=== PATIENT | male | born 1955 | race African-American/Black ===

== ENCOUNTER 2016-11-21 11:01 | Emergency (ER) | payer OTHER ==
[~2016-11-21] VITALS: Ht 182.9 cm; Wt 102.1 kg
[~2016-11-21 11:01] MED LIST: ACETAMINOPHEN-1 EAC1 ORAL; ASPIRIN81 M1 PO; BACTRIM DS TAB1 EAC1 ORAL; BACTRIM-DS1 EA ORAL; CEPHALEXIN500 MG ORAL; CIPRO500 MG PO; FLOMAX0.4 MG PO; GLIPIZIDE10 MG PO; IBUPROFEN600 MG PO; KEFLEX500 MG ORAL; NAPROXEN500 MG PO; PROTONIX40 MG PO; ULTRAM50 MG ORAL; VIBRAMYCIN100 MG ORAL; VICODIN 5-5001 EACH PO; ZESTRIL20 MG PO
[2016-11-21] MEDS ORDERED: Famotidine 20 MG/ 2ML VIAL IVP ONE (11:45)
[2016-11-21] MEDS ORDERED: Morphine Sulfate 4mg/ml Inj IVP ONE (11:45)
--- NOTE | 2016-11-21 11:45 | Emergency Room Report ---
History of Present Illness General Chief Complaint: Abdominal Pain Source: Patient Present Illness HPI The patient presents with epigastric and back pain. He was seen by his doctor and they have scheduled endoscopy tomorrow. She told him that if the pain became severe to go to the emergency department. He previously had an evaluation for ulcers but has not had a recent evaluation. He denies any cardiac problems aside from hypertension. Many years ago and also he had melena but his stools have been normal. He had polyuria last night, no hematuria. No fevers. Last night the pain became severe and he had to take 2 Percocets. It was 9/10 and constant last night - severe. Today it's now 6/10. Post surgery to pull esophagus up into chest with L thoracotomy. Renal issues in the past. Allergies: Coded Allergies: No Known Allergies (Unverified , 12/19/11) Patient History Past Medical History: see triage record Past Surgical History: other - fundopplication? Social History: Denies: smoking, alcohol use, drug use Social History Narrative home, Reviewed Nursing Documentation: PMH: Agreed, PSxH: Agreed Nursing Documentation-PMH Hx Cardiac Problems: Yes Hx Hypertension: Yes Hx Diabetes: Yes Hx Cancer: No Hx Neurological Problems: No Review of Systems All Other Systems: negative except mentioned in HPI Physical Exam Vital Signs Date Time Temp Pulse Resp B/P (MAP) Pulse Ox O2 Delivery O2 Flow Rate FiO2 11/21/16 11:22 97.9 76 16 130/80 99 Room Air Sp02 EP Interpretation: reviewed, normal General Appearance: well appearing, no apparent distress, GCS 15 Head: normocephalic Eyes: bilateral eye normal inspection, bilateral eye PERRL ENT: moist mucus membranes Neck: supple Respiratory: lungs clear, normal breath sounds, other - thoracotomy scar L Cardiovascular #1: regular rate, rhythm Cardiovascular #2: 2+ radial (R) Gastrointestinal: normal inspection, normal bowel sounds, non tender, no mass, non-distended Musculoskeletal: back normal, gait/station normal, normal range of motion Neurologic: alert, oriented x3, grossly normal Psychiatric: mood/affect normal Skin: normal inspection, warm/dry Medical Decision Making Diagnostic Impression: Primary Impression: Abdominal pain Qualified Codes: R10.12 - Left upper quadrant pain Additional Impression: Chest and back pain ER Course Patient presents with severe L chest and back pain which seems to originate from stomach. DDx: AMI, ACS, gastritis, pancreatitis, GERD, spasm, aneurism, PE amongst others. VS against PE. Due to severity of pain, emergent evaluation with EKG, CT abdomen. Treatment with IV hydration and morphine, zofran and pepcid. Labs with normal WBC, H/H and slight increased creat. CT as below. CXR with L changes which could be post op. Area of pain not consistent with mesenteric hernia. Improved with treatment. Patient states recent (3 mo ago) cardiac eval which was normal. Based on this his risk of cardiac event is low. Based on severity of pain - I wanted to admit patient. He insisted on leaving. Patient will follow up with PMD tomorrow for endoscopy. Laboratory Tests Test 11/21/16 11:20 11/21/16 11:55 Urine Color Pale yellow Urine Appearance Slightly cloudy Urine pH 5 (4.5-8.0) Urine Specific Marshall 1.020 (1.005-1.035) Urine Protein 1+ (NEGATIVE) H Urine Glucose (UA) Negative (NEGATIVE) Urine Ketones Negative (NEGATIVE) Urine Occult Blood Negative (NEGATIVE) Urine Nitrite Negative (NEGATIVE) Urine Bilirubin Negative (NEGATIVE) Urine Urobilinogen Normal MG/DL (0.0-1.0) Urine Leukocyte Esterase 1+ (NEGATIVE) H Urine RBC 2-4 /HPF (0 - 0) H Urine WBC 2-4 /HPF (0 - 0) Urine Squamous Epithelial Cells Few /LPF (NONE/OCC) Urine Bacteria Few /HPF (NONE) White Blood Count 8.3 K/UL (4.8-10.8) Red Blood Count 4.14 M/UL (4.70-6.10) L Hemoglobin 12.3 G/DL (14.2-18.0) L Hematocrit 37.5 % (42.0-52.0) L Mean Corpuscular Volume 90 FL (80-99) Mean Corpuscular Hemoglobin 29.8 PG (27.0-31.0) Mean Corpuscular Hemoglobin Concent 32.9 G/DL (32.0-36.0) Red Cell Distribution Width 13.5 % (11.6-14.8) Platelet Count 156 K/UL (150-450) Mean Platelet Volume 10.4 FL (6.5-10.1) H Neutrophils (%) (Auto) 58.3 % (45.0-75.0) Lymphocytes (%) (Auto) 27.1 % (20.0-45.0) Monocytes (%) (Auto) 7.5 % (1.0-10.0) Eosinophils (%) (Auto) 5.8 % (0.0-3.0) H Basophils (%) (Auto) 1.4 % (0.0-2.0) Prothrombin Time 10.5 SEC (9.30-11.50) Prothrombin Time INR 1.0 (0.9-1.1) PTT 26 SEC (23-33) Sodium Level 139 mEQ/L (135-145) Potassium Level 4.5 mEQ/L (3.4-4.9) Chloride Level 101 mEQ/L (98-107) Carbon Dioxide Level 28 mEQ/L (20-30) Anion Gap 10 (5-15) Blood Urea Nitrogen 12 mg/dL (7-23) Creatinine 1.4 mg/dL (0.7-1.2) H Estimate Glomerular Filtration Rate > 60 mL/min (>60) Glucose Level 179 mg/dL (74-106) H Calcium Level 8.9 mg/dL (8.6-10.2) Total Bilirubin 0.2 mg/dL (0.0-1.2) Aspartate Amino Transferase (AST) 24 U/L (5-40) Alanine Aminotransferase (ALT) 34 U/L (3-41) Alkaline Phosphatase 137 U/L (40-129) H Total Creatine Kinase 342 U/L (38-174) H Troponin I < 0.30 ng/mL (<=0.30) Total Protein 6.3 g/dL (6.6-8.7) L Albumin 3.8 g/dL (3.5-5.2) Globulin 2.5 g/dL Albumin/Globulin Ratio 1.5 (1.0-2.7) Lipase 28 U/L (< 60) EKG Diagnostic Results Rate: normal Rhythm: NSR ST Segments: no acute changes Rhythm Strip Diag. Results EP Interpretation: yes Rhythm: NSR, no PVC's, no ectopy Chest X-Ray Diagnostic Results Chest X-Ray Diagnostic Results : Chest X-Ray Ordered: Yes # of Views/Limited/Complete: 1 View Indication: Chest Pain EP Interpretation: Yes Interpretation: no consolidation, no pneumothorax, other - L effusion vs thickening Impression: Other Electronically Signed by: Juan Diego Waters MD CT/MRI/US Diagnostic Results CT/MRI/US Diagnostic Results : Imaging Test Ordered: abd/pelvis Impression Impression: Atrophic right kidney. Possible internal hernia involving the dorsal mesenteric root and) midline portion of the mid abdomen. No evidence of bowel obstruction or inflammatory changes associated with this finding. Atherosclerotic vascular disease Mild left hydronephrosis, perhaps associated with mildly distended urinary bladder. Multiple left renal cysts. Mild left basal atelectasis. Moderate size hiatal hernia. L5-S1 degenerative disc disease Last Vital Signs Date Time Temp Pulse Resp B/P (MAP) Pulse Ox O2 Delivery O2 Flow Rate FiO2 11/21/16 15:44 98.0 82 16 120/80 98 Room Air Status: improved Disposition: HOME, SELF-CARE Condition: Improved Juan Diego Waters M.D. Nov 21, 2016 11:45
[2016-11-21 11:53] LABS: APPEARANCE,URINE SLIGHTLY CLOUDY; KETONES,URINE NEGATIVE (NEGATIVE); LEUKOCYTE ESTERASE ,URINE 1+ (NEGATIVE); NITRITE,URINE NEGATIVE (NEGATIVE); PH,URINE 5 (4.5-8.0); PROTEIN,URINE 1+ (NEGATIVE); UROBILINOGEN,URINE NORMAL MG/DL (0.0-1.0)
[2016-11-21 12:09] LABS: BACTERIA,URINE FEW /HPF; SQUAMOUS EPITHELIAL CELL,UR FEW /LPF (NONE/OCC)
[2016-11-21 12:11] LABS: BASOPHILS % (AUTO) 1.4 % (0.0-2.0); EOSINOPHILS % (AUTO) 5.8 % (0.0-3.0); LYMPHOCYTES % (AUTO) 27.1 % (20.0-45.0); MEAN CORPUSCULAR HEMOGLOBIN 29.8 PG (27.0-31.0); MEAN CORPUSCULAR HGB CONC 32.9 G/DL (32.0-36.0); MEAN CORPUSCULAR VOLUME 90 FL (80-99); MEAN PLATELET VOLUME 10.4 FL (6.5-10.1); MONOCYTES % (AUTO) 7.5 % (1.0-10.0); NEUTROPHILS % (AUTO) 58.3 % (45.0-75.0); PLATELET COUNT 156 K/UL (150-450); RED BLOOD COUNT 4.14 M/UL (4.70-6.10); RED CELL DISTRIBUTION WIDTH 13.5 % (11.6-14.8); WHITE BLOOD COUNT 8.3 K/UL (4.8-10.8)
[2016-11-21 12:20] LABS: PROTHROMBIN TIME 10.5 SEC (9.30-11.50)
[2016-11-21 12:26] LABS: TROPONIN I < 0.30 ng/mL (<=0.30)
[2016-11-21 12:30] LABS: ALANINE AMINOTRANSFERASE 34 U/L (3-41); ALBUMIN/GLOBULIN RATIO 1.5 (1.0-2.7); ANION GAP 10 (5-15); ASPARTATE AMINO TRANSFERASE 24 U/L (5-40); CALCIUM 8.9 mg/dL (8.6-10.2); CARBON DIOXIDE 28 mEQ/L (20-30); CHLORIDE 101 mEQ/L (98-107); CREATININE 1.4 mg/dL (0.7-1.2); GLOMERULAR FILTRATION RATE > 60 mL/min (>60); HEMOLYSIS 4; LIPASE 28 U/L (< 60); POTASSIUM 4.5 mEQ/L (3.4-4.9); SODIUM 139 mEQ/L (135-145); TOTAL PROTEIN 6.3 g/dL (6.6-8.7)
--- NOTE | 2016-11-21 12:30 | Diagnostic Imaging Report ---
Indication: Dyspnea Comparison: None A single view chest radiograph was obtained. Findings: There is blunting of the left costophrenic angle which may be due to a small effusion or pleural thickening. The heart is mildly enlarged. No infiltrate seen. Bones are unremarkable. Impression: Left pleural effusion versus pleural thickening
--- NOTE | 2016-11-21 14:14 | Diagnostic Imaging Report ---
Indication: Abdominal pain Technique: Continuous helical transaxial imaging of the abdomen and pelvis was obtained from the lung bases to the pubic symphysis during intravenous contrast administration. Coronal 2-D reformats were also obtained. Study obtained in a Siemens sensation [address] Total Dose length Product (DLP): [address] Dose Index Volume (CTDIvol): 18.4, though 0.15 mGy Comparison: None Findings: There is left basilar atelectasis. There is a moderate size hiatal hernia. There are cystic hypodensities within the left kidney. There is mild left hydronephrosis without evidence of obstructing stone. The urinary bladder is mildly distended. The right kidney is markedly atrophic. There is some dilatation of the right renal pelvis noted. Normal appendix demonstrated. There is a score-like pattern of the mesenteric vessels in the dorsal mesenteric root just below the pancreas. The possibility of an internal hernia is not excluded. There is no evidence of inflammation or bowel obstruction or other consequence of this finding. Few diverticula noted in the colon. Arterial vascular calcifications are present. No free fluid or free air identified. The liver and spleen and pancreas are unremarkable. Gallbladder is unremarkable. Narrowing of L5-S1 disc, endplate and facet spur formation demonstrated. Impression: Atrophic right kidney. Possible internal hernia involving the dorsal mesenteric root and) midline portion of the mid abdomen. No evidence of bowel obstruction or inflammatory changes associated with this finding. Atherosclerotic vascular disease Mild left hydronephrosis, perhaps associated with mildly distended urinary bladder. Multiple left renal cysts. Mild left basal atelectasis. Moderate size hiatal hernia. L5-S1 degenerative disc disease The CT scanner at [facility] is accredited by the [employer] and the scans are performed using dose optimization techniques as appropriate to a performed exam including Automatic Exposure control.
[2016-11-21 15:40] VITALS: BP 120/80
[2016-11-21 15:44] VITALS: BP 120/80
== END 2016-11-21 15:45 | disposition home or self-care (01) ==
LOC: EMR 12:10 → CANBEDREQ 15:17 → EMR 15:45
DX: R10.13 Epigastric pain (principal); M54.9 Dorsalgia, unspecified; R07.9 Chest pain, unspecified; E11.9 Type 2 diabetes mellitus without complications; I10 Essential (primary) hypertension; N26.1 Atrophy of kidney (terminal); N28.1 Cyst of kidney, acquired; K44.9 Diaphragmatic hernia without obstruction or gangrene; M51.37 Other intervertebral disc degeneration, lumbosacral region; N13.30 Unspecified hydronephrosis
CPT/HCPCS: 36415; 71010; 74177; 80053; 81003; 82550; 83690; 84484; 85025; 85610; 85730; 93005; 96361; 96374; 96375; 99284; J2270; J2405; Q9967; S0028

== ENCOUNTER 2017-02-24 19:30 | Emergency (ER) | payer OTHER ==
[~2017-02-24] VITALS: Ht 180.3 cm; Wt 106.6 kg
[2017-02-24 20:08] VITALS: BP 152/74
[2017-02-24] MEDS ORDERED: HUMALOG 75/255 UNITS SUBQ (20:41)
[2017-02-24] MEDS ORDERED: METFORMIN HCL500 M1 ORAL (20:41)
[2017-02-24] MEDS ORDERED: GLUCOTROL10 MG ORAL (20:41)
[2017-02-24 21:21] VITALS: BP 152/74
--- NOTE | 2017-02-24 22:21 | Emergency Room Report ---
History of Present Illness General Chief Complaint: Medication Refill Source: Patient Present Illness [facility] The patient is a 61-year-old male with a history of diabetes presenting for medication refill. He states that he ran out of his insulin as well as 2 other oral medications yesterday and has not been able to followup with primary doctor as he is out of town. He denies any symptoms including dizziness, SOB, CP, abd pain, fatigue Allergies: Coded Allergies: No Known Allergies (Unverified , 12/19/11) Patient History Past Medical History: see triage record Pertinent Family History: none Reviewed Nursing Documentation: PMH: Agreed, PSxH: Agreed Nursing Documentation-PMH Hx Cardiac Problems: Yes Hx Hypertension: Yes Hx Diabetes: Yes Hx Cancer: No Hx Neurological Problems: No Review of Systems All Other Systems: negative except mentioned in HPI Physical Exam Vital Signs Date Time Temp Pulse Resp B/P (MAP) Pulse Ox O2 Delivery O2 Flow Rate FiO2 02/24/17 19:35 97.5 87 16 145/70 95 Room Air Sp02 EP Interpretation: reviewed, normal General Appearance: no apparent distress, alert, GCS 15, non-toxic Head: normocephalic, atraumatic Eyes: bilateral eye normal inspection, bilateral eye PERRL ENT: hearing grossly normal, normal pharynx, no angioedema, normal voice Respiratory: chest non-tender, lungs clear, normal breath sounds, speaking full sentences Cardiovascular #1: regular rate, rhythm, no edema Musculoskeletal: back normal, gait/station normal, normal range of motion, non- tender Neurologic: alert, oriented x3, responsive, motor strength/tone normal, sensory intact, speech normal Psychiatric: judgement/insight normal, memory normal, mood/affect normal, no suicidal/homicidal ideation Skin: normal color, no rash, warm/dry, well hydrated Medical Decision Making PA Attestation Dr. Woodward is my supervising physician. Patient management was discussed with my supervising physician Diagnostic Impression: Primary Impression: Diabetes mellitus Qualified Codes: E11.8 - Type 2 diabetes mellitus with unspecified complications Additional Impression: Encounter for medication refill ER Course The patient is a 61-year-old male with a history of diabetes presenting for medication refill DDx considered but not limited to: hyperglycemia, hypoglycemia, DKA, among others Initial Accu-Chek shows significant hyperglycemia. The patient is given 8 units of insulin and will be discharged home with his normal diabetic medications. He is not exhibiting any signs of hyperglycemia. BS has decreased after insulin. He will follow up with his her doctor soon as possible. ER precautions are given Last Vital Signs Date Time Temp Pulse Resp B/P (MAP) Pulse Ox O2 Delivery O2 Flow Rate FiO2 02/24/17 21:21 97.5 69 16 152/74 95 Room Air Status: improved Disposition: HOME, SELF-CARE Condition: Improved Scripts Metformin Hcl* (METFORMIN HCL*) 500 Mg Tablet 500 MG ORAL TWICE A DAY, #30 TAB Prov: GLEN SMITH.ABroderick 02/24/17 Glipizide* (GLUCOTROL*) 10 Mg Tablet 10 MG ORAL BID, #30 TAB 0 Refills Prov: GLEN SMITH 02/24/17 Insulin Human Isophan/Regular (Humulin 70-30 Vial) 100 Unit/1 Ml Vial 52 UNITS SUBQ BIDAC, #5 VIAL 0 Refills Prov: GLEN SMITH.ABroderick 02/24/17 Referrals: [facility] (PCP) Patient Instructions: Insulin Treatment for Diabetes, Medicine Refill at the Emergency Department, Blood Glucose Monitoring, Adult Additional Instructions: I discussed my findings with the patient. All questions and concerns have been answered. Treatment and medication compliance have been addressed. Return to ED if symptoms worsen, new symptoms arise, or if needed for any reason. Patient verbalized understanding of discharge instructions. Return to emergency Department if you notice dizziness, chest pain, shortness of breath, abdominal pain, back pain GLEN SMITH Feb 24, 2017 22:21
== END 2017-02-24 21:19 | disposition home or self-care (01) ==
LOC: EMR 20:11
DX: E11.8 Type 2 diabetes mellitus with unspecified complications (principal); Z76.0 Encounter for issue of repeat prescription; I10 Essential (primary) hypertension; Z79.4 Long term (current) use of insulin
CPT/HCPCS: 82962; 96372; 99284; J1815

== ENCOUNTER 2017-05-11 20:28 | Emergency (ER) | payer OTHER ==
[~2017-05-11] VITALS: Ht 188 cm; Wt 102.1 kg
[~2017-05-11 20:28] MED LIST changes: +GLUCOTROL10 MG ORAL; +HUMALOG 75/255 UNITS SUBQ; +METFORMIN HCL500 M1 ORAL
[2017-05-11 21:00] VITALS: BP 148/80
[2017-05-11] MEDS ORDERED: Morphine Sulfate 4mg/ml Inj IVP ONE (21:00)
[2017-05-11] MEDS ORDERED: Norco 5mg/325mg tab ORAL ONE (21:30)
[2017-05-11] MEDS ORDERED: IBUPROFEN600 MG ORAL (22:49)
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
[2017-05-11 22:59] VITALS: BP 142/81
[2017-05-11 23:00] VITALS: BP 142/81
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
== END 2017-05-11 22:50 | disposition home or self-care (01) ==
LOC: EMR 22:50
DX: R10.9 Unspecified abdominal pain (principal); V43.62XA Car passenger injured in collision with other type car in traffic accident, initial encounter; Y92.410 Unspecified street and highway as the place of occurrence of the external cause; I10 Essential (primary) hypertension; E11.9 Type 2 diabetes mellitus without complications
CPT/HCPCS: 74176; 99284

== ENCOUNTER 2017-05-31 04:06 | Emergency (ER) | payer OTHER ==
[~2017-05-31] VITALS: Ht 180.3 cm; Wt 106.6 kg
[~2017-05-31 04:06] MED LIST changes: +IBUPROFEN600 MG ORAL
[2017-05-31 04:37] VITALS: BP 158/78
--- NOTE | 2017-05-31 04:39 | Emergency Room Report ---
History of Present Illness General Chief Complaint: Abdominal Pain Source: Patient Present Illness HPI 61-year-old male, history of esophageal strictures with repair 2 years ago, diabetes, presenting with abdominal pain for the last 7 days. Points to his left abdomen. States that it is intermittent. Has had significant nausea and vomiting for the last couple days, at least 53 day. Nonbilious nonbloody. Normal bowel movements. No black or bloody stools. He is passing gas. States that he has had this pain in the past. His last CAT scan was in October which did not reveal any acute surgical pathology No fever chills chest pain or shortness of breath Allergies: Coded Allergies: No Known Allergies (Unverified , 12/19/11) Patient History Past Medical History: see triage record Past Surgical History: none Pertinent Family History: none Reviewed Nursing Documentation: PMH: Agreed; PSxH: Agreed Nursing Documentation-PMH Hx Cardiac Problems: Yes Hx Hypertension: Yes Hx Diabetes: Yes Hx Cancer: No Hx Neurological Problems: No Review of Systems All Other Systems: negative except mentioned in HPI Physical Exam Vital Signs Date Time Temp Pulse Resp B/P (MAP) Pulse Ox O2 Delivery O2 Flow Rate FiO2 05/31/17 04:15 97.8 82 18 158/78 94 Room Air 97.9 Sp02 EP Interpretation: reviewed, normal General Appearance: normal inspection, well appearing, no apparent distress, alert, GCS 15, non-toxic Head: normocephalic, atraumatic Eyes: bilateral eye normal inspection, bilateral eye PERRL, bilateral eye EOMI ENT: normal ENT inspection, normal pharynx, normal voice, moist mucus membranes Neck: normal inspection, full range of motion, supple Respiratory: normal inspection, lungs clear, normal breath sounds, no respiratory distress, no retraction, no wheezing, speaking full sentences, chest symmetrical Cardiovascular #1: normal inspection, regular rate, rhythm, no edema, normal capillary refill Cardiovascular #2: 2+ radial (R), 2+ radial (L) Gastrointestinal: other - firm abdomen, LLQ tenderness, no guarding or rigidity , no masses palpated Genitourinary: no CVA tenderness Musculoskeletal: normal inspection, back normal, normal range of motion, non- tender Neurologic: normal inspection, alert, oriented x3, responsive, motor strength/ tone normal, sensory intact, normal gait, speech normal Psychiatric: normal inspection, judgement/insight normal, memory normal Skin: normal inspection, normal color, no rash, warm/dry, well hydrated, normal turgor Medical Decision Making Diagnostic Impression: Primary Impression: Abdominal pain Additional Impression: Renal insufficiency ER Course 61-year-old male with abdominal pain Differential Diagnosis: Gastritis, gastroenteritis, cholecystitis, appendicitis, diverticulitis, SBO, cardiac, UTI/pyelo Plan: Basic labs, ua, ekg pain control, IVF CT abdopelvis ER course: Patient has remained stable during ED stay. Signed out to Dr Hoyt 61 yo M with LLQ pain pending CT scan results for final dispo Please note that this Emergency Department Report was dictated using [employer] testing technology software, occasionally this can lead to erroneous entry secondary to interpretation by the dictation equipment EKG Diagnostic Results EP Interpretation: Yes Rate: normal Rhythm: NSR ST Segments: No acute changes ASA given to patient: No Rhythm Strip EP Interpretation: Yes Rate: 75 Rhythm: NSR, no PVCs, no ectopy Last Vital Signs Date Time Temp Pulse Resp B/P (MAP) Pulse Ox O2 Delivery O2 Flow Rate FiO2 18 04:15 97.8 82 18 158/78 94 Room Air 97.9 Referrals: [facility] (PCP) Aaron Thrasher M.D. May 31, 2017 04:39
[2017-05-31 04:44] LABS: BASOPHILS % (AUTO) 1.3 % (0.0-2.0); EOSINOPHILS % (AUTO) 5.7 % (0.0-3.0); HEMATOCRIT 35.9 % (42.0-52.0); HEMOGLOBIN 12.3 G/DL (14.2-18.0); LYMPHOCYTES % (AUTO) 27.1 % (20.0-45.0); MEAN CORPUSCULAR VOLUME 85 FL (80-99); PLATELET COUNT 133 K/UL (150-450); RED BLOOD COUNT 4.23 M/UL (4.70-6.10); WHITE BLOOD COUNT 7.4 K/UL (4.8-10.8)
[2017-05-31 04:45] LABS: APPEARANCE,URINE CLEAR; BILIRUBIN, URINE NEGATIVE (NEGATIVE); COLOR,URINE PALE YELLOW; GLUCOSE, URINE (UA) 4+ (NEGATIVE); KETONES,URINE NEGATIVE (NEGATIVE); LEUKOCYTE ESTERASE ,URINE NEGATIVE (NEGATIVE); NITRITE,URINE NEGATIVE (NEGATIVE); PH,URINE 6.5 (4.5-8.0); PROTEIN,URINE NEGATIVE (NEGATIVE); UROBILINOGEN,URINE NORMAL MG/DL (0.0-1.0)
[2017-05-31] MEDS ORDERED: Morphine Sulfate 4mg/ml Inj IVP ONE (04:45)
[2017-05-31 04:55] LABS: ANION GAP 5 mmol/L (5-15); BLOOD UREA NITROGEN 11 mg/dL (7-18); CARBON DIOXIDE 29 MMOL/L (21-32); CHLORIDE 101 MMOL/L (98-107); CREATININE 1.6 MG/DL (0.55-1.30); SODIUM 135 MMOL/L (136-145)
[2017-05-31 04:59] LABS: ALANINE AMINOTRANSFERASE 33 U/L (12-78); ALKALINE PHOSPHATASE 137 U/L (46-116); ASPARTATE AMINO TRANSFERASE 19 U/L (15-37); BILIRUBIN,TOTAL 0.1 MG/DL (0.2-1.0)
[2017-05-31] MEDS ORDERED: HUMULIN R100 UNIT/1 SUBQ (05:08)
[2017-05-31] MEDS ORDERED: GABAPENTIN100 MG ORAL (05:08)
[2017-05-31 06:29] VITALS: BP 145/76
[2017-05-31] MEDS ORDERED: DICYCLOMINE HCL10 MG PO (07:26)
[2017-05-31] MEDS ORDERED: COLACE100 MG ORAL (07:26)
[2017-05-31 07:30] VITALS: BP 153/73
[2017-05-31 07:35] VITALS: BP 153/73
--- NOTE | 2017-05-31 10:03 | Diagnostic Imaging Report ---
Indication: Abdominal pain Technique: CT of the abdomen and pelvis utilizing automated exposure control without intravenous or oral contrast. CT dose: Total DLP 879.11 mGycm; CTDI vol 15.47 mGy Comparison: 05/11/2017 Findings: Please note that evaluation of the abdominal and pelvic viscera is limited without the use of intravenous and oral contrast. Within these limitations the following observations are made: Unchanged postsurgical appearance of the left chest wall with left pleural thickening with adjacent linear opacities/scarring in the left base. Mild dependent atelectasis seen in the right lower lobe. Heart size is within normal limits. No pericardial effusion. Noncontrast evaluation of the liver, gallbladder, spleen and adrenal glands and pancreas is grossly unremarkable. Is unchanged marked atrophy of the right kidney with a fluid attenuation structure possibly representing a residual renal pelvis. The left kidney is normal in appearance. There are multiple low-attenuation likely cysts in the left kidney. There is no urinary tract stone or hydronephrosis. There is no evidence of free intraperitoneal air or ascites. No evidence of hemoperitoneum. There is a moderate-sized hiatal hernia with unchanged thickening of the distal esophagus. There is some swirling of the mesentery just below the pancreas. This is unchanged from the prior exam. The possibility of internal hernia is not entirely excluded. There is no evidence of bowel obstruction or inflammation or additional consequence of this finding. A few scattered diverticula are seen in the colon. Abdominal aorta is normal in size with atherosclerotic calcifications. No bulky retroperitoneal adenopathy is seen. There is degenerative change of the spine. No acute osseous abnormality noted. IMPRESSION: Limited exam without intravenous or oral contrast. Within these limitations: No definite evidence of acute intra-abdominal pathology. * No evidence of free intraperitoneal fluid or air. * Unchanged hiatal hernia with thickening of the distal esophagus possibly related to chronic obstruction, reflux, esophageal dysmotility and/or esophagitis. Correlation with endoscopy again recommended. Additional stable findings unchanged from prior exam as above. This corresponds with the statrad preliminary report. The CT scanner at [facility] is accredited by the [employer] and the scans are performed using protocols designed to limit radiation exposure to as low as reasonably achievable to attain images of sufficient resolution adequate for diagnostic evaluation.
--- NOTE | 2017-05-31 12:42 | Cardiology Report ---
APPROVED REPORT EKG Measurement Heart [id number] Normal sinus rhythm Normal ECG
== END 2017-05-31 07:46 | disposition home or self-care (01) ==
LOC: EMR 04:26
DX: R10.9 Unspecified abdominal pain (principal); N28.9 Disorder of kidney and ureter, unspecified; I10 Essential (primary) hypertension; E11.9 Type 2 diabetes mellitus without complications
CPT/HCPCS: 36415; 74176; 80053; 81003; 83690; 84484; 85025; 93005; 96374; 96375; 99284; J2270; J2405; S0028

== ENCOUNTER 2017-11-27 13:19 | Emergency (ER) | payer OTHER ==
[~2017-11-27] VITALS: Ht 180.3 cm; Wt 106.6 kg
[~2017-11-27 13:19] MED LIST changes: +COLACE100 MG ORAL; +DICYCLOMINE HCL10 MG PO; +GABAPENTIN100 MG ORAL; +HUMULIN R100 UNIT/1 SUBQ
[2017-11-27 13:41] VITALS: BP 115/72
[2017-11-27] MEDS ORDERED: Tetanus/Diptheria/Pertussis Vaccine 0.5ml Syr IM ONE (14:00)
[2017-11-27] MEDS ORDERED: Norco 5mg/325mg tab ORAL ONE (14:15)
[2017-11-27] MEDS ORDERED: Ketorolac 30mg Inj IM ONE (15:45)
--- NOTE | 2017-11-27 15:51 | Emergency Room Report ---
History of Present Illness General Chief Complaint: Laceration Source: Patient Present Illness HPI 62-year-old male patient presents to ER complaining of left middle finger injury. Reports that he was using a kickboxing instructor to open boxes when he sliced off part of his finger. States does not have the tip of his finger present. Reports he is right-hand dominant. reports history of diabetes. reports taking blood thinners medication, does not know the name. denies fever, chest pain, shortness of breath. Denies calf pain. Allergies: Coded Allergies: No Known Allergies (Unverified , 12/19/11) Patient History Past Medical History: see triage record Reviewed Nursing Documentation: PMH: Agreed; PSxH: Agreed Nursing Documentation-PMH Hx Cardiac Problems: Yes Hx Hypertension: Yes Hx Diabetes: Yes Hx Cancer: No Hx Neurological Problems: No Review of Systems All Other Systems: negative except mentioned in HPI Physical Exam Vital Signs Date Time Temp Pulse Resp B/P (MAP) Pulse Ox O2 Delivery O2 Flow Rate FiO2 11/27/17 13:31 98.7 80 20 115/72 98 Room Air 98.8 Sp02 EP Interpretation: reviewed, normal General Appearance: well appearing, no apparent distress, alert, GCS 15, non- toxic Head: normocephalic, atraumatic Eyes: bilateral eye normal inspection, bilateral eye PERRL ENT: hearing grossly normal, normal pharynx, no angioedema, normal voice, uvula midline, moist mucus membranes Neck: full range of motion Respiratory: lungs clear, normal breath sounds, no rhonchi, no respiratory distress, no accessory muscle use, no wheezing, speaking full sentences Cardiovascular #1: regular rate, rhythm, no edema Cardiovascular #2: 2+ radial (R), 2+ radial (L) Musculoskeletal: back normal, gait/station normal, normal range of motion, other - left hand middle finger: Tip of finger and nail avulsed and missing, no nail avulsion or subungual hematoma, bone not exposed, bleeding, sensation intact to light touch,, tender - left hand middle finger nail Neurologic: alert, oriented x3, responsive, motor strength/tone normal, sensory intact Psychiatric: mood/affect normal Skin: no rash Medical Decision Making PA Attestation Dr. Alaniz is my supervising Physician whom patient management has been discussed with. Diagnostic Impression: Primary Impression: Avulsion, finger tip ER Course Pt presents to ED c/o cutting his hand with kickboxing instructor, injury to left hand middle finger. DDX considered but are not limited to laceration, abrasion, contusion, cellulitis. VITAL SIGNS are WNL, patient is afebrile ED INTERVENTIONS: due to extent of injury, will consult with Dr. Calvo. Dr. Calvo graciously agreed to come in and consult on aptient. Wound was cleaned and irrigated using copious normal saline. x-ray of right hand negative for acute disease, no damage to distal phalanx of left hand middle finger, per the preliminary reading. patient provided with [place] pain medication. Finger repaired by . See procedure Dr. Calvo procedure note. consult with Dr. Calvo, will provide patient with oral and topical antibiotic medication, willl provide patient with Tylenol No. 3 for pain symptoms. Wound cleaned and covered by Dr. Calvo, instructed patient to keep wound covered until follow up with Dr. Calvo. Patient reports understanding and agreement to treatment plan. Keep wound clean and dry. Followup with Dr. Calvo for wound check and suture removal in 5-7 days. call to schedule appointment. ER precautions given. DISCHARGE: Rx provided for Keflex Rx provided for Bacitracin Rx provided for Tylenol #3 CURES reviewed At this time pt is stable for d/c to home. Patient resting comfortably, in no acute distress, nontoxic appearing, talking without difficulty. Will provide with patient care instructions and any necessary prescriptions. Patient to take medication as instructed. Care plan and follow-up instructions provided. Work note provided to patient. Patient questions asked and answered. Patient instructed to follow-up with primary care provider for wound check and suture removal. ER precautions given. Patient instructed to return to ER immediately for any new or worsening of symptoms. - Please note that this Emergency Department Report was dictated using [employer] manager technology software, occasionally this can lead to erroneous entry secondary to interpretation by the dictation equipment. Other X-Ray Diagnostic Results Other X-Ray Diagnostic Results : X-Ray ordered: left hand # of Views/Limited Vs Complete: 3 View Indication: Pain EP Interpretation: Yes PA Xray: Interpretation reviewed, by supervising MD, and agrees with findings. Interpretation: no dislocation, no soft tissue swelling, no fractures Impression: No acute disease ZEYAD Scribe Text Derrick Yusuf PA-C Last Vital Signs Date Time Temp Pulse Resp B/P (MAP) Pulse Ox O2 Delivery O2 Flow Rate FiO2 11/27/17 15:23 98.8 11/27/17 13:41 20 115/72 98 Room Air 11/27/17 13:31 80 Disposition: HOME, SELF-CARE Condition: Stable Scripts Cephalexin* (KEFLEX*) 500 Mg Capsule 500 MG ORAL EVERY 12 HOURS for 7 Days, #14 CAP 0 Refills Prov: Eduard Yusuf 11/27/17 Bacitracin/Polymyxin B Sulfate (BACITRACIN-POLYMYXIN OINTMENT) 28.35 Gm Oint...g. 1 APPLIC TP BID, #28 GM Prov: Eduard Yusuf 11/27/17 Acetaminophen With Codeine (T#3) (TYLENOL #3 TAB*) Y Tab 1 TAB ORAL Q6HR PRN for For Pain, #10 TAB Prov: Eduard Yusuf 11/27/17 Referrals: [facility]ERR[facility] (PCP) Patient Instructions: Deep Skin Avulsion, Laceration Care, Adult, Sutured Wound Care, [id number] Additional Instructions: Patient instructed to follow-up with Dr. Calvo for wound check and suture removal in 6-7 days. Call to schedule appointment. Take medications as directed. Keep wound clean and dry. Patient questions asked and answered. ER precautions given, patient instructed to return to ER immediately for any new or worsening of symptoms. Eduard Yusuf Nov 27, 2017 15:51
[2017-11-27] MEDS ORDERED: Bacitracin Oint UD TOPIC ONE (16:00)
[2017-11-27] MEDS ORDERED: Lidocaine 1% 10mg/ml/Epi 0.005mg/ml 30ml vial INJ ONE (16:00)
--- NOTE | 2017-11-27 17:03 | Diagnostic Imaging Report ---
Indication: Pain, trauma Technique: 3 views left hand Comparison: none Findings: No acute fractures. No dislocations. Osseous erosions are seen about the first interphalangeal joint, the first carpometacarpal joint, second and third third proximal interphalangeal joints. There is mild degenerative narrowing of multiple distal interphalangeal joints and of the first metacarpophalangeal joint. Well-corticated ossific density posterior to the wrist on the lateral view may represent an old fracture. Impression: No acute bony trauma Degenerative and erosive changes, as described Possible old carpal trauma, likely of the triquetrum
[2017-11-27] MEDS ORDERED: CEPHALEXIN500 MG ORAL (17:28)
[2017-11-27] MEDS ORDERED: BACITRACIN-P28.35 GM TP (17:28)
[2017-11-27] MEDS ORDERED: ACETAMINOPHEN-1 EAC1 ORAL (17:28)
[2017-11-27 17:39] VITALS: BP 121/77
== END 2017-11-27 17:40 | disposition home or self-care (01) ==
LOC: EMR 14:17
DX: S61.203A Unspecified open wound of left middle finger without damage to nail, initial encounter (principal); W27.5XXA Contact with paper-cutter, initial encounter; Y92.9 Unspecified place or not applicable; I10 Essential (primary) hypertension; E11.9 Type 2 diabetes mellitus without complications
CPT/HCPCS: 73130; 90471; 90715; 96372; 99283; J1885

== ENCOUNTER 2017-11-29 17:11 | Emergency (ER) | payer OTHER ==
[~2017-11-29] VITALS: Ht 180.3 cm; Wt 106.6 kg
[~2017-11-29 17:11] MED LIST changes: +BACITRACIN-P28.35 GM TP
[2017-11-29 17:38] VITALS: BP 147/76
[2017-11-29] MEDS ORDERED: Albuterol ud Inhalation HHN ONE (17:45)
--- NOTE | 2017-11-29 18:09 | Emergency Room Report ---
History of Present Illness General Chief Complaint: Dyspnea/Respdistress Source: Patient Present Illness HPI 62-year-old male with a history of tobacco use, hypertension, diabetes, coronary disease status post coronary artery stent, comes ER for one day history of chest tightness and shortness of breath, denies fever, cough, syncope , leg swelling or leg pain, but does report nausea and vomiting once today. He reports normal bowel movements, denies abdominal pain, denies any other complaint. Allergies: Coded Allergies: No Known Allergies (Unverified , 12/19/11) Patient History Past Medical History: see triage record Reviewed Nursing Documentation: PMH: Agreed; PSxH: Agreed Nursing Documentation-PMH Hx Cardiac Problems: Yes Hx Hypertension: Yes Hx Diabetes: Yes Hx Cancer: No Hx Neurological Problems: No Review of Systems All Other Systems: negative except mentioned in HPI Physical Exam Vital Signs Date Time Temp Pulse Resp B/P (MAP) Pulse Ox O2 Delivery O2 Flow Rate FiO2 11/29/17 17:24 98.5 71 18 145/80 93 98.4 11/29/17 17:38 Room Air 11/29/17 17:52 21 Sp02 EP Interpretation: reviewed, normal General Appearance: no apparent distress, alert, non-toxic Head: normocephalic Eyes: bilateral eye normal inspection, bilateral eye PERRL, bilateral eye EOMI ENT: normal ENT inspection, hearing grossly normal, normal pharynx, no angioedema, normal voice, moist mucus membranes Neck: normal inspection, full range of motion, supple, supple/symm/no masses Respiratory: chest non-tender, lungs clear, normal breath sounds, chest symmetrical, palpation of chest normal Cardiovascular #1: normal peripheral pulses, regular rate, rhythm, no edema, no gallop, no JVD, no murmur, no rub Cardiovascular #2: 2+ radial (R), 2+ radial (L) Gastrointestinal: normal inspection, non tender, soft, no mass, no guarding, no rebound Rectal: deferred Genitourinary: normal inspection, no CVA tenderness Musculoskeletal: back normal, gait/station normal, normal range of motion, non- tender, no calf tenderness, Maico's Sign negative Neurologic: alert, responsive, mold mechanic III-XII nml as tested, motor strength/tone normal, sensory intact, speech normal Psychiatric: judgement/insight normal, memory normal, mood/affect normal Skin: normal color, no rash, warm/dry, normal turgor Lymphatic: no adenopathy Medical Decision Making Diagnostic Impression: Primary Impression: Chest pain ER Course 62-year-old male with history of coronary disease, diabetes, hypertension, stent , feels better after getting aspirin and nitroglycerin one tab. EKG unremarkable. I spoke to Dr. Harmon, he will accept in transfer. EKG Diagnostic Results EKG Time: 17:45 EP Interpretation: no st-t- changes, no TWI's Rate: normal Rhythm: NSR ST Segments: no acute changes ASA given to the pt in ED: Yes Rhythm Strip Diag. Results Rhythm Strip Time: 18:08 EP Interpretation: yes Rate: 71 Rhythm: NSR, no PVC's, no ectopy Chest X-Ray Diagnostic Results Chest X-Ray Diagnostic Results : Chest X-Ray Ordered: Yes # of Views/Limited/Complete: 1 View Indication: Chest Pain EP Interpretation: Yes Interpretation: no consolidation, no effusion, no pneumothorax, no acute cardiopulmonary disease Impression: No acute disease Electronically Signed by: Regina Cash MD Last Vital Signs Date Time Temp Pulse Resp B/P (MAP) Pulse Ox O2 Delivery O2 Flow Rate FiO2 11/29/17 18:05 70 21 Room Air 21 11/29/17 18:04 97 11/29/17 17:38 98.4 147/76 98.4 Disposition: ADMITTED INPATIENT REGINA CASH M.D Nov 29, 2017 18:09
[2017-11-29] MEDS ORDERED: Nitroglycerin Subl 0.4mg tab SL PRN (18:15)
[2017-11-29 18:41] LABS: BASOPHILS % (AUTO) 1.5 % (0.0-2.0); EOSINOPHILS % (AUTO) 3.9 % (0.0-3.0); HEMATOCRIT 37.2 % (42.0-52.0); HEMOGLOBIN 12.2 G/DL (14.2-18.0); LYMPHOCYTES % (AUTO) 26.5 % (20.0-45.0); MEAN CORPUSCULAR VOLUME 89 FL (80-99); MONOCYTES % (AUTO) 7.9 % (1.0-10.0); NEUTROPHILS % (AUTO) 60.2 % (45.0-75.0); PLATELET COUNT 153 K/UL (150-450); RED BLOOD COUNT 4.17 M/UL (4.70-6.10); RED CELL DISTRIBUTION WIDTH 13.3 % (11.6-14.8); WHITE BLOOD COUNT 6.7 K/UL (4.8-10.8)
[2017-11-29 18:51] LABS: ANION GAP 6 mmol/L (5-15); BLOOD UREA NITROGEN 16 mg/dL (7-18); CALCIUM 8.3 MG/DL (8.5-10.1); CARBON DIOXIDE 27 MMOL/L (21-32); CHLORIDE 108 MMOL/L (98-107); CREATININE 1.6 MG/DL (0.55-1.30); POTASSIUM 4.2 MMOL/L (3.5-5.1); SODIUM 141 MMOL/L (136-145)
[2017-11-29 19:04] LABS: ALANINE AMINOTRANSFERASE 34 U/L (12-78); ALBUMIN 3.2 G/DL (3.4-5.0); ALKALINE PHOSPHATASE 130 U/L (46-116); ASPARTATE AMINO TRANSFERASE 24 U/L (15-37); BILIRUBIN,TOTAL 0.4 MG/DL (0.2-1.0)
[2017-11-29] MEDS ORDERED: CARVEDILOL3.125 MG ORAL (19:43)
[2017-11-29] MEDS ORDERED: GABAPENTIN300 MG ORAL (19:43)
[2017-11-29] MEDS ORDERED: BRILINTA90 MG PO (19:43)
[2017-11-29] MEDS ORDERED: NOVOLIN 70100 UNIT/1 (19:43)
[2017-11-29] MEDS ORDERED: ATORVASTATIN CA80 MG ORAL (19:43)
[2017-11-29] MEDS ORDERED: TAMSULOSIN HCL0.4 MG ORAL (19:43)
[2017-11-29] MEDS ORDERED: LISINOPRIL5 MG ORAL (19:43)
[2017-11-29 21:35] VITALS: BP 145/71
--- NOTE | 2017-11-30 10:40 | Diagnostic Imaging Report ---
Indication: Chest pain Technique: One view of the chest Comparison: 11/21/2016 Findings: Left costophrenic angle blunting appears similar to prior exam, could indicate pleural fluid versus scarring. There is some scarring in the left perihilar region peripherally. The remainder of the lungs and pleural spaces are otherwise clear.. There is questionably an old Hill-Sachs deformity of the right humeral head Impression: Left costophrenic angle blunting, could indicate a small pleural effusion, but similar to prior study could suggests that this is due to chronic pleural thickening Left perihilar scarring No definite acute process otherwise
--- NOTE | 2017-12-03 14:53 | Cardiology Report ---
APPROVED REPORT EKG Measurement Heart [id number] Normal sinus rhythm Septal infarct, age undetermined Abnormal ECG
== END 2017-11-29 21:35 | disposition short-term general hospital (02) ==
LOC: EMR 17:58
DX: R07.89 Other chest pain (principal); I10 Essential (primary) hypertension; E11.9 Type 2 diabetes mellitus without complications; I25.10 Atherosclerotic heart disease of native coronary artery without angina pectoris; Z95.5 Presence of coronary angioplasty implant and graft
CPT/HCPCS: 36415; 71045; 80053; 83880; 84484; 85025; 93005; 94640; 94664; 99285

== ENCOUNTER 2017-12-12 09:35 | Emergency (ER) | payer OTHER ==
[~2017-12-12] VITALS: Ht 180.3 cm; Wt 106.6 kg
[~2017-12-12 09:35] MED LIST changes: +ATORVASTATIN CA80 MG ORAL; +BRILINTA90 MG PO; +CARVEDILOL3.125 MG ORAL; +GABAPENTIN300 MG ORAL; +LISINOPRIL5 MG ORAL; +NOVOLIN 70100 UNIT/1; +TAMSULOSIN HCL0.4 MG ORAL
[2017-12-12 09:51] VITALS: BP 130/67
[2017-12-12 10:10] VITALS: BP 130/67
--- NOTE | 2017-12-12 12:47 | Emergency Room Report ---
History of Present Illness General Chief Complaint: Wound Recheck/Suture Removal Source: Patient, Medical Record Present Illness HPI 62-year-old male presents ED for wound check. Had an avulsion injury of his left finger. Was seen here on 11/27. Was repaired by Dr. Dhaliwal and subsequent discharge. Patient was instructed to follow-up with Dr. Dhaliwal in his office. Patient came here for follow-up. Denies any complaints. Denies any pain. States wound is healing well. States that they took some skin from his stomach and attached it to his finger. Denies any fevers or chills. He denies any discharge. No other aggravating relieving factors. Denies any other associated symptoms Allergies: Coded Allergies: No Known Allergies (Unverified , 12/19/11) Patient History Past Medical History: DM, HTN Past Surgical History: none Pertinent Family History: none Social History: Denies: smoking, alcohol use, drug use Immunizations: UTD Reviewed Nursing Documentation: PMH: Agreed; PSxH: Agreed Nursing Documentation-PMH Past Medical History: No History, Except For Hx Cardiac Problems: Yes Hx Hypertension: Yes Hx Diabetes: Yes Hx Cancer: No Hx Neurological Problems: No Review of Systems All Other Systems: negative except mentioned in HPI Physical Exam Vital Signs Date Time Temp Pulse Resp B/P (MAP) Pulse Ox O2 Delivery O2 Flow Rate FiO2 12/12/17 09:41 98.3 67 18 130/67 98 Room Air 98.2 Sp02 EP Interpretation: reviewed, normal General Appearance: no apparent distress, alert, GCS 15, non-toxic Head: normocephalic Eyes: bilateral eye normal inspection, bilateral eye PERRL ENT: normal ENT inspection Neck: normal inspection Respiratory: normal inspection Cardiovascular #1: normal inspection Gastrointestinal: normal inspection Rectal: deferred Genitourinary: no CVA tenderness Musculoskeletal: normal inspection Neurologic: alert, oriented x3, responsive, motor strength/tone normal, sensory intact, speech normal Psychiatric: normal inspection Skin: other - flap on L middle finger healing well. no induration/erythema. no discharge Lymphatic: normal inspection Medical Decision Making Diagnostic Impression: Primary Impression: Encounter for wound re-check ER Course Hospital Course 62-year-old M presents to ED for wound check. s/p repair of flap laceration to finger Clinical course Patient placed on stretcher. Wound appears clean dry and intact. No erythema or induration. The area on the abdomen were skin was removed appears to be healing well. Full range of motion to the finger. I spoke to Dr. Dhaliwal; he is asking that patient follow-up in his office today if possible. I discussed this with the patient and gave referral information to Dr. Dhaliwal's office Diagnosis - encounter for wound re-check Stable and discharged to home. Followup with plastics/hand. Return to ED if any signs of infection develop Last Vital Signs Date Time Temp Pulse Resp B/P (MAP) Pulse Ox O2 Delivery O2 Flow Rate FiO2 12/12/17 10:10 98.2 88 18 130/67 98 Room Air 98.2 Status: improved Disposition: HOME, SELF-CARE Condition: Stable Referrals: [facility] ([facility]P) SILVIA DHALIWAL M.D. Patient Instructions: Wound Check Jovon Woodward MD Dec 12, 2017 12:47
== END 2017-12-12 10:11 | disposition home or self-care (01) ==
LOC: EMR 09:59
DX: S61.213D Laceration without foreign body of left middle finger without damage to nail, subsequent encounter (principal); X58.XXXD Exposure to other specified factors, subsequent encounter; Z48.02 Encounter for removal of sutures; I10 Essential (primary) hypertension; E11.9 Type 2 diabetes mellitus without complications
CPT/HCPCS: 99282

== ENCOUNTER 2018-01-13 17:37 | Emergency (ER) | payer OTHER ==
[~2018-01-13] VITALS: Ht 180.3 cm; Wt 106.6 kg
[2018-01-13 17:49] VITALS: BP 136/77
[2018-01-13] MEDS ORDERED: PYRIDOXINE HCL50 MG ORAL (18:04)
[2018-01-13] MEDS ORDERED: METFORMIN HCL500 M1 ORAL (18:04)
[2018-01-13] MEDS ORDERED: GLIPIZIDE5 MG ORAL (18:04)
[2018-01-13] MEDS ORDERED: ADALAT10 MG ORAL (18:04)
[2018-01-13] MEDS ORDERED: LISINOPRIL20 MG ORAL (18:04)
[2018-01-13] MEDS ORDERED: ZANTAC150 MG ORAL (18:04)
[2018-01-13] MEDS ORDERED: FAMOTIDINE20 MG ORAL (18:04)
[2018-01-13] MEDS ORDERED: BACTRIM DS TAB1 EAC1 ORAL (18:04)
[2018-01-13] MEDS ORDERED: CYMBALTA30 MG ORAL (18:04)
[2018-01-13] MEDS ORDERED: VITAMIN B-121000 MCG PO (18:04)
[2018-01-13] MEDS ORDERED: Sodium Chloride 500ML 500 ML IV ONE (18:13)
[2018-01-13 18:46] LABS: BASOPHILS % (AUTO) 0.8 % (0.0-2.0); EOSINOPHILS % (AUTO) 1.5 % (0.0-3.0); HEMATOCRIT 39.1 % (42.0-52.0); HEMOGLOBIN 13.5 G/DL (14.2-18.0); MEAN CORPUSCULAR VOLUME 86 FL (80-99); MONOCYTES % (AUTO) 5.6 % (1.0-10.0); NEUTROPHILS % (AUTO) 73.2 % (45.0-75.0); PLATELET COUNT 174 K/UL (150-450); RED BLOOD COUNT 4.56 M/UL (4.70-6.10); RED CELL DISTRIBUTION WIDTH 12.4 % (11.6-14.8)
[2018-01-13 18:56] LABS: ANION GAP 6 mmol/L (5-15); BLOOD UREA NITROGEN 11 mg/dL (7-18); CALCIUM 8.7 MG/DL (8.5-10.1); CARBON DIOXIDE 32 MMOL/L (21-32); CHLORIDE 105 MMOL/L (98-107); CREATININE 1.5 MG/DL (0.55-1.30); POTASSIUM 4.2 MMOL/L (3.5-5.1); SODIUM 143 MMOL/L (136-145)
[2018-01-13 18:59] LABS: ALANINE AMINOTRANSFERASE 21 U/L (12-78); ALBUMIN 3.1 G/DL (3.4-5.0); ALBUMIN/GLOBULIN RATIO 0.8 (1.0-2.7); ALKALINE PHOSPHATASE 145 U/L (46-116); ASPARTATE AMINO TRANSFERASE 15 U/L (15-37); BILIRUBIN,TOTAL 0.3 MG/DL (0.2-1.0)
[2018-01-13 20:00] VITALS: BP 132/80
[2018-01-13 20:05] VITALS: BP 132/80
--- NOTE | 2018-01-13 20:23 | Emergency Room Report ---
History of Present Illness General Chief Complaint: Syncope Source: Patient Present Illness HPI 8-year-old male presents ED for evaluation. Patient states that last night he may have had a syncopal episode. Laying on the couch and his family member came into the room and saw that the patient appeared confused. Also appeared to be diaphoretic at the time. Patient states he feels okay at this time. Denies fevers chills. Denies cough. Denies chest pain or shortness of breath. No other aggravating relieving factors. Denies any other associated symptoms Allergies: Coded Allergies: No Known Allergies (Unverified , 12/19/11) Patient History Past Medical History: DM, HTN Past Surgical History: none Pertinent Family History: none Social History: Denies: smoking, alcohol use, drug use Immunizations: UTD Reviewed Nursing Documentation: PMH: Agreed; PSxH: Agreed Nursing Documentation-PMH Past Medical History: No History, Except For Hx Cardiac Problems: Yes Hx Hypertension: Yes Hx Diabetes: Yes Hx Cancer: No Hx Neurological Problems: No Review of Systems All Other Systems: negative except mentioned in HPI Physical Exam Vital Signs Date Time Temp Pulse Resp B/P (MAP) Pulse Ox O2 Delivery O2 Flow Rate FiO2 01/13/18 17:39 97.9 67 17 158/77 98 Room Air Sp02 EP Interpretation: reviewed, normal General Appearance: no apparent distress, alert, GCS 15, non-toxic Head: normocephalic, atraumatic Eyes: bilateral eye normal inspection, bilateral eye PERRL ENT: hearing grossly normal, normal pharynx, no angioedema, normal voice Neck: full range of motion, supple/symm/no masses Respiratory: chest non-tender, lungs clear, normal breath sounds, speaking full sentences Cardiovascular #1: regular rate, rhythm, no edema Cardiovascular #2: 2+ carotid (R), 2+ carotid (L), 2+ radial (R), 2+ radial (L) , 2+ dorsalis pedis (R), 2+ dorsalis pedis (L) Gastrointestinal: normal bowel sounds, non tender, soft, non-distended, no guarding, no rebound Rectal: deferred Genitourinary: normal inspection, no CVA tenderness Musculoskeletal: back normal, gait/station normal, normal range of motion, non- tender Neurologic: alert, oriented x3, responsive, motor strength/tone normal, sensory intact, speech normal Psychiatric: judgement/insight normal, memory normal, mood/affect normal, no suicidal/homicidal ideation Reflexes: 3+ bicep (R), 3+ bicep (L), 3+ tricep (R), 3+ tricep (L), 3+ knee (R) , 3+ knee (L) Skin: normal color, no rash, warm/dry, well hydrated Lymphatic: no adenopathy Medical Decision Making Diagnostic Impression: Primary Impression: Syncope Qualified Codes: R55 - Syncope and collapse ER Course Hospital Course 62 yo M presents to ED for possible syncopal episode last night. no symptoms today Differential diagnoses include: arrythmia, dehydration, intracranial bleed, seizure Clinical course Patient placed on stretcher. on chaperon. After initial history and physical I ordered labs, EKG, chest Xray, IVFs, CT Brain labs reviewed- no leukocytosis, Hb/Hct stable, electrolytes ok, troponins negative, flu swab negative CT Brain - unremarkable Chest x-ray- no acute process EKG - NSR, no acute ischemic changes interpreted by me Discussed findings with the patient. Negative workup. stable vitals. Asymptomatic at this time. Unclear whether patient actually had syncopal episode. Offered option for admission but patient states he will follow-up with his PMD. Safe for discharge close patient follow-up I. I feel this is a highly complex case requiring extensive working including EKG/Rhythm strip, Xray/CT/US, Blood/urine lab work, repeat exams while in ED, and administration of strong opiates/narcotics for pain control, admission to hospital or close patient follow up. Diagnosis - syncope Stable and discharged to home. Followup with PMD. Return to ED if symptoms recur or worsen Labs Test 01/13/18 18:15 White Blood Count 10.0 K/UL (4.8-10.8) Red Blood Count 4.56 M/UL (4.70-6.10) Hemoglobin 13.5 G/DL (14.2-18.0) Hematocrit 39.1 % (42.0-52.0) Mean Corpuscular Volume 86 FL (80-99) Mean Corpuscular Hemoglobin 29.5 PG (27.0-31.0) Mean Corpuscular Hemoglobin Concent 34.5 G/DL (32.0-36.0) Red Cell Distribution Width 12.4 % (11.6-14.8) Platelet Count 174 K/UL (150-450) Mean Platelet Volume 10.7 FL (6.5-10.1) Neutrophils (%) (Auto) 73.2 % (45.0-75.0) Lymphocytes (%) (Auto) 19.0 % (20.0-45.0) Monocytes (%) (Auto) 5.6 % (1.0-10.0) Eosinophils (%) (Auto) 1.5 % (0.0-3.0) Basophils (%) (Auto) 0.8 % (0.0-2.0) Sodium Level 143 MMOL/L (136-145) Potassium Level 4.2 MMOL/L (3.5-5.1) Chloride Level 105 MMOL/L (98-107) Carbon Dioxide Level 32 MMOL/L (21-32) Anion Gap 6 mmol/L (5-15) Blood Urea Nitrogen 11 mg/dL (7-18) Creatinine 1.5 MG/DL (0.55-1.30) Estimat Glomerular Filtration Rate 57.8 mL/min (>60) Glucose Level 188 MG/DL (74-106) Calcium Level 8.7 MG/DL (8.5-10.1) Total Bilirubin 0.3 MG/DL (0.2-1.0) Aspartate Amino Transf (AST/SGOT) 15 U/L (15-37) Alanine Aminotransferase (ALT/SGPT) 21 U/L (12-78) Alkaline Phosphatase 145 U/L (46-116) Troponin I 0.010 ng/mL (0.000-0.056) Total Protein 6.8 G/DL (6.4-8.2) Albumin 3.1 G/DL (3.4-5.0) Globulin 3.7 g/dL Albumin/Globulin Ratio 0.8 (1.0-2.7) EKG Diagnostic Results Rate: normal Rhythm: NSR ST Segments: no acute changes ASA given to the pt in ED: No Rhythm Strip Diag. Results EP Interpretation: yes Rhythm: NSR, no PVC's, no ectopy Chest X-Ray Diagnostic Results Chest X-Ray Diagnostic Results : Chest X-Ray Ordered: Yes # of Views/Limited/Complete: 1 View Indication: Other - syncope EP Interpretation: Yes Interpretation: no consolidation, no effusion, no pneumothorax, no acute cardiopulmonary disease Impression: No acute disease Electronically Signed by: Electronically signed by Jovon Woodward MD CT/MRI/US Diagnostic Results CT/MRI/US Diagnostic Results : Imaging Test Ordered: CT Head Impression no acute process Last Vital Signs Date Time Temp Pulse Resp B/P (MAP) Pulse Ox O2 Delivery O2 Flow Rate FiO2 01/13/18 17:49 97.9 67 17 136/77 98 Room Air Status: improved Disposition: HOME, SELF-CARE Condition: Stable Referrals: NON PHYSICIAN (PCP) Patient Instructions: Syncope Jovon Woodward MD Jan 13, 2018 20:23
--- NOTE | 2018-01-14 10:47 | Diagnostic Imaging Report ---
Indication: Syncope Technique: Continuous helical CT scanning of the head was performed without intravenous contrast material. Axial and coronal 5 mm sections were generated. Radiation dose was minimized using automated exposure control Dose: Total Dose Length Product - DLP [address] Dose Index - CTDIvol(s) 70 mGy. Comparison: none Findings: The ventricular system is normal in size and configuration. There is no shift of midline structures. No abnormal extra-axial fluid collections are noted. There is no evidence of intracerebral bleeding. No other abnormal high or low density areas are noted within the brain. Sinuses and mastoids are clear. The visualized orbits are unremarkable. The calvarium is intact. The white differentiation is normal. Impression: Normal CT scan of the head without contrast material. This agrees with the preliminary interpretation provided overnight by [facility] teleradiology service. The CT scanner at [facility] is accredited by the [employer] and the scans are performed using protocols designed to limit radiation exposure to as low as reasonably achievable to attain images of sufficient resolution adequate for diagnostic evaluation.
--- NOTE | 2018-01-14 16:44 | Diagnostic Imaging Report ---
Indication: Chest pain Technique: One view of the chest Comparison: 11/29/2017 Findings: Again demonstrated is scarring in the left midlung. There is lateral basilar pleural thickening on the left, unchanged. The heart is borderline enlarged. The remainder the lungs and pleural spaces are clear Impression: Left lateral basilar pleural thickening versus fluid, favor the former given similarity to prior studies Borderline hepatomegaly No definite acute process otherwise
--- NOTE | 2018-01-15 08:47 | Cardiology Report ---
APPROVED REPORT EKG Measurement Heart [id number] NV [id number] Normal sinus rhythm Abnormal QRS-T angle, consider primary T wave abnormality Abnormal ECG
== END 2018-01-13 20:28 | disposition home or self-care (01) ==
LOC: EMR 18:31
DX: R55 Syncope and collapse (principal); I10 Essential (primary) hypertension; E11.9 Type 2 diabetes mellitus without complications
CPT/HCPCS: 36415; 70450; 71045; 80053; 82962; 84484; 85025; 86710; 93005; 99284

== ENCOUNTER 2018-01-14 09:29 | Emergency (ER) | payer OTHER ==
[~2018-01-14] VITALS: Ht 180.3 cm; Wt 106.6 kg
[~2018-01-14 09:29] MED LIST changes: +ADALAT10 MG ORAL; +CYMBALTA30 MG ORAL; +FAMOTIDINE20 MG ORAL; +GLIPIZIDE5 MG ORAL; +LISINOPRIL20 MG ORAL; +PYRIDOXINE HCL50 MG ORAL; +VITAMIN B-121000 MCG PO; +ZANTAC150 MG ORAL
[2018-01-14 09:30] VITALS: BP 129/67
[2018-01-14] MEDS ORDERED: Sodium Chloride 500ML 500 ML IV ONE (09:44)
--- NOTE | 2018-01-14 09:46 | Emergency Room Report ---
History of Present Illness General Chief Complaint: Seizure Source: Patient Present Illness HPI Patient initially presented with report of right leg pain After a possible seizure activity Patient's family member saw the patient shaking Patient however reports that he is never had a seizure disorder Patient does not appear to have postictal state Glucose checked by the paramedics was low however Patient was here yesterday as well with what he reports as similar presentation At that time the chief complaint was syncope Patient did have a lapse of consciousness today He does have diabetes and is insulin-dependent Denies any focal weakness he does have pain to the right upper femur Denies any headache denies any fevers Allergies: Coded Allergies: No Known Allergies (Unverified , 12/19/11) Patient History Past Medical History: see triage record Pertinent Family History: none Reviewed Nursing Documentation: PMH: Agreed; PSxH: Agreed Nursing Documentation-PMH Past Medical History: No History, Except For Hx Cardiac Problems: Yes Hx Hypertension: Yes Hx Diabetes: Yes Hx Cancer: No Hx Neurological Problems: No Review of Systems All Other Systems: negative except mentioned in HPI Physical Exam Vital Signs Date Time Temp Pulse Resp B/P (MAP) Pulse Ox O2 Delivery O2 Flow Rate FiO2 01/14/18 09:27 98.4 71 16 130/74 99 Room Air Sp02 EP Interpretation: reviewed, normal General Appearance: well appearing, no apparent distress Head: normocephalic, atraumatic Eyes: bilateral eye PERRL, bilateral eye EOMI ENT: hearing grossly normal, normal pharynx, TMs + canals normal, uvula midline , other - adenturelous Neck: full range of motion, supple, no meningismus, no bony tend Respiratory: lungs clear, normal breath sounds, no rhonchi, no respiratory distress, no retraction, no accessory muscle use Cardiovascular #1: normal peripheral pulses, regular rate, rhythm, no edema, no gallop, no JVD, no murmur Gastrointestinal: normal bowel sounds, non tender, soft, no mass, no organomegaly, non-distended, no guarding, no hernia, no pulsatile mass, no rebound Genitourinary: no CVA tenderness Musculoskeletal: normal inspection Neurologic: oriented x3, responsive, personnel coordinator III-XII nml as tested, motor strength/ tone normal, sensory intact Psychiatric: mood/affect normal Skin: normal color, no rash, warm/dry, palpation normal Lymphatic: normal inspection, no adenopathy Medical Decision Making Diagnostic Impression: Primary Impression: Syncope Additional Impression: Hypoglycemia ER Course Patient is a fairly complex patient with multiple differential to consideration including but not limited to cardiac cardiopulmonary and vascular emergencies Patient appears to have been here recently with similar complaints Today's visit revealed low glucose levels Patient is an insulin-dependent diabetic Potentially the syncopal episodes could be related to hypoglycemia seizure activity that was reported also likely from hypoxic episode Patient remains well oriented there is no indication for CT imaging And the patient is admitted for further care Secondary to insurance purposes patient required transfer , Labs Test 01/14/18 09:45 01/14/18 10:42 White Blood Count 12.1 K/UL (4.8-10.8) Red Blood Count 5.00 M/UL (4.70-6.10) Hemoglobin 13.9 G/DL (14.2-18.0) Hematocrit 42.2 % (42.0-52.0) Mean Corpuscular Volume 84 FL (80-99) Mean Corpuscular Hemoglobin 27.9 PG (27.0-31.0) Mean Corpuscular Hemoglobin Concent 33.0 G/DL (32.0-36.0) Red Cell Distribution Width 12.8 % (11.6-14.8) Platelet Count 184 K/UL (150-450) Mean Platelet Volume 11.0 FL (6.5-10.1) Neutrophils (%) (Auto) % (45.0-75.0) Lymphocytes (%) (Auto) % (20.0-45.0) Monocytes (%) (Auto) % (1.0-10.0) Eosinophils (%) (Auto) % (0.0-3.0) Basophils (%) (Auto) % (0.0-2.0) Differential Total Cells Counted 100 Neutrophils % (Manual) 91 % (45-75) Lymphocytes % (Manual) 4 % (20-45) Monocytes % (Manual) 5 % (1-10) Eosinophils % (Manual) 0 % (0-3) Basophils % (Manual) 0 % (0-2) Band Neutrophils 0 % (0-8) Platelet Estimate Adequate Platelet Morphology Normal Sodium Level 141 MMOL/L (136-145) Potassium Level 4.1 MMOL/L (3.5-5.1) Chloride Level 103 MMOL/L (98-107) Carbon Dioxide Level 31 MMOL/L (21-32) Anion Gap 7 mmol/L (5-15) Blood Urea Nitrogen 10 mg/dL (7-18) Creatinine 1.5 MG/DL (0.55-1.30) Estimat Glomerular Filtration Rate 57.8 mL/min (>60) Glucose Level 150 MG/DL (74-106) Calcium Level 9.0 MG/DL (8.5-10.1) Total Bilirubin 0.3 MG/DL (0.2-1.0) Aspartate Amino Transf (AST/SGOT) 28 U/L (15-37) Alanine Aminotransferase (ALT/SGPT) 28 U/L (12-78) Alkaline Phosphatase 147 U/L (46-116) Total Creatine Kinase 268 U/L (26-308) Creatine Kinase MB 4.2 NG/ML (0.0-3.6) Creatine Kinase MB Relative Index 1.5 Troponin I 0.010 ng/mL (0.000-0.056) Total Protein 7.0 G/DL (6.4-8.2) Albumin 3.1 G/DL (3.4-5.0) Globulin 3.9 g/dL Albumin/Globulin Ratio 0.8 (1.0-2.7) Lipase 113 U/L (73-393) Urine Color Pale yellow Urine Appearance Clear Urine pH 7 (4.5-8.0) Urine Specific Bradford 1.005 (1.005-1.035) Urine Protein 3+ (NEGATIVE) Urine Glucose (UA) Negative (NEGATIVE) Urine Ketones Negative (NEGATIVE) Urine Blood 1+ (NEGATIVE) Urine Nitrite Negative (NEGATIVE) Urine Bilirubin Negative (NEGATIVE) Urine Urobilinogen Normal MG/DL (0.0-1.0) Urine Leukocyte Esterase Negative (NEGATIVE) Urine RBC 2-4 /HPF (0 - 0) Urine WBC 0-2 /HPF (0 - 0) Urine Squamous Epithelial Cells Occasional /LPF Urine Bacteria Occasional /HPF (NONE) Urine Opiates Screen Negative (NEGATIVE) Urine Barbiturates Screen Negative (NEGATIVE) Phencyclidine (PCP) Screen Negative (NEGATIVE) Urine Amphetamines Screen Negative (NEGATIVE) Urine Benzodiazepines Screen Negative (NEGATIVE) Urine Cocaine Screen Negative (NEGATIVE) Urine Marijuana (THC) Screen Negative (NEGATIVE) EKG Diagnostic Results Rate: normal Rhythm: NSR ST Segments: no acute changes Rhythm Strip Diag. Results EP Interpretation: yes Rate: 77 Rhythm: NSR, no PVC's, no ectopy Chest X-Ray Diagnostic Results Chest X-Ray Diagnostic Results : Chest X-Ray Ordered: Yes # of Views/Limited/Complete: 1 View Indication: Chest Pain EP Interpretation: Yes Interpretation: no consolidation, no effusion, no pneumothorax Impression: No acute disease Electronically Signed by: Dell Viramontes DO Other X-Ray Diagnostic Results Other X-Ray Diagnostic Results : X-Ray ordered: Right hip # of Views/Limited Vs Complete: 2 View Indication: Pain EP Interpretation: Yes Interpretation: no dislocation, no soft tissue swelling, no fractures Impression: No acute disease Electronically Signed by: Dell Viramontes DO Last Vital Signs Date Time Temp Pulse Resp B/P (MAP) Pulse Ox O2 Delivery O2 Flow Rate FiO2 01/14/18 09:27 98.4 71 16 130/74 99 Room Air Status: improved Disposition: XFER [facility] Condition: Improved Referrals: [facility] (PCP) Dell Viramontes DO Jan 14, 2018 09:46
[2018-01-14 10:13] LABS: HEMATOCRIT 42.2 % (42.0-52.0); HEMOGLOBIN 13.9 G/DL (14.2-18.0); MEAN CORPUSCULAR VOLUME 84 FL (80-99); PLATELET COUNT 184 K/UL (150-450); RED CELL DISTRIBUTION WIDTH 12.8 % (11.6-14.8); WHITE BLOOD COUNT 12.1 K/UL (4.8-10.8)
[2018-01-14 10:16] LABS: ANION GAP 7 mmol/L (5-15); BLOOD UREA NITROGEN 10 mg/dL (7-18); CARBON DIOXIDE 31 MMOL/L (21-32); CHLORIDE 103 MMOL/L (98-107); CREATININE 1.5 MG/DL (0.55-1.30); POTASSIUM 4.1 MMOL/L (3.5-5.1); SODIUM 141 MMOL/L (136-145)
[2018-01-14 10:30] LABS: ALANINE AMINOTRANSFERASE 28 U/L (12-78); ALBUMIN 3.1 G/DL (3.4-5.0); ALBUMIN/GLOBULIN RATIO 0.8 (1.0-2.7); ALKALINE PHOSPHATASE 147 U/L (46-116); ASPARTATE AMINO TRANSFERASE 28 U/L (15-37); BILIRUBIN,TOTAL 0.3 MG/DL (0.2-1.0); CKMB 4.2 NG/ML (0.0-3.6); CREATINE KINASE 268 U/L (26-308)
[2018-01-14 11:00] LABS: APPEARANCE,URINE CLEAR; BILIRUBIN, URINE NEGATIVE (NEGATIVE); COLOR,URINE PALE YELLOW; GLUCOSE, URINE (UA) NEGATIVE (NEGATIVE); KETONES,URINE NEGATIVE (NEGATIVE); LEUKOCYTE ESTERASE ,URINE NEGATIVE (NEGATIVE); NITRITE,URINE NEGATIVE (NEGATIVE); PH,URINE 7 (4.5-8.0); PROTEIN,URINE 3+ (NEGATIVE); UROBILINOGEN,URINE NORMAL MG/DL (0.0-1.0)
--- NOTE | 2018-01-14 11:55 | Diagnostic Imaging Report ---
Indication: Chest pain Technique: One view of the chest Comparison: 01/13/2018 Findings: Left lateral pleural thickening versus fluid is unchanged from the prior exam. Scarring in the left midlung periphery is also unchanged. No definite acute infiltrates. The heart is borderline enlarged Impression: Left lateral basilar pleural fluid versus scarring; similarity to previous study suggests the latter Left midlung parenchymal scarring No definite acute process Borderline cardiomegaly
--- NOTE | 2018-01-14 12:01 | Diagnostic Imaging Report ---
Indication: Hip pain Technique: 2 views of the right hip Comparison: none Findings: No acute fractures. No dislocations. The joint spaces are preserved. Impression: Negative
[2018-01-14 12:33] VITALS: BP 142/58
[2018-01-14 12:35] VITALS: BP 142/58
--- NOTE | 2018-01-15 08:46 | Cardiology Report ---
APPROVED REPORT EKG Measurement Heart [id number] DC [id number] Sinus bradycardia Otherwise normal ECG
== END 2018-01-14 12:35 | disposition short-term general hospital (02) ==
LOC: EDBD 09:29 → EMR 09:44
DX: R55 Syncope and collapse (principal); M25.551 Pain in right hip; E11.649 Type 2 diabetes mellitus with hypoglycemia without coma; Z79.4 Long term (current) use of insulin; I10 Essential (primary) hypertension; R07.9 Chest pain, unspecified; F17.200 Nicotine dependence, unspecified, uncomplicated; R11.10 Vomiting, unspecified; Z86.79 Personal history of other diseases of the circulatory system
CPT/HCPCS: 36415; 71045; 80053; 80307; 81003; 82550; 82553; 82962; 83690; 84484; 85007; 85025; 93005; 99284

== ENCOUNTER 2019-11-21 17:44 | Emergency (ER) | payer OTHER ==
[~2019-11-21] VITALS: Ht 180.3 cm; Wt 106.6 kg
--- NOTE | 2019-11-21 18:23 | Diagnostic Imaging Report ---
EXAM: XR Chest, 1 View CLINICAL HISTORY: AMS TECHNIQUE: Frontal view of the chest. COMPARISON: 01/14/2018. FINDINGS: Lungs: Presumed subsegmental atelectasis at the left lung base. The right lung is well aerated. Pleural space: Small to moderate left pleural effusion, unchanged. No pneumothorax. Heart: Mild cardiomegaly. Mediastinum: Unremarkable. Bones/joints: Osteopenia. IMPRESSION: 1. Mild cardiomegaly. 2. Small to moderate left pleural effusion. 3. Presumed subsegmental atelectasis at the left lung base. 4. Findings are similar to the study of 01/14/2018.
[2019-11-21 18:30] VITALS: BP 154/90
[2019-11-21] MEDS ORDERED: Insulin Human Regular 100units/ml 3ml IV ONE (18:30)
--- NOTE | 2019-11-21 18:31 | NUR ---
Nurse Note: Pt arrived c/o shortness of breath, frequent urination, constant mouth dryness since 0200 after checking his blood sugar. Pt stated the monitor read HI. Pt stated he took 58U of insulin. RT AC 18 gauge est, blood collected, blood cultures collected, urine collected, RAPID covid swab collected, BS checked, 428; MD aware. Chest x-ray obtained. All safety measures met; will continue to montior.
--- NOTE | 2019-11-21 18:51 | Emergency Room Report ---
History of Present Illness General Chief Complaint: Altered Mental Status Source: Patient Present Illness HPI 64-year-old male with history of type 1 insulin-dependent diabetes here with hyperglycemia and generalized fatigue. Patient says that he has been feeling generalized fatigue and some mild shortness of breath over the past several days. He checked his blood sugar early this morning at 4:30 AM and says that it was too high for his home glucose monitor to read. He took 52 units of insulin subcutaneously when he saw this reading. Has not checked his blood sugar taking more insulin since then. Denies headaches, vision changes, fevers, chills, chest pain, palpitations, back pain, abdominal pain, cough, nausea, vomiting, diarrhea, dysuria. Allergies: Coded Allergies: No Known Allergies (Unverified , 12/19/11) COVID-19 Screening Contact w/high risk pt: No Experienced COVID-19 symptoms?: No COVID-19 Testing performed TIME STUDY ENGINEER: No Nursing Documentation-PMH Past Medical History: No History, Except For Hx Cardiac Problems: Yes Hx Hypertension: Yes Hx Diabetes: Yes Hx Cancer: No Hx Neurological Problems: No Review of Systems All Other Systems: negative except mentioned in HPI Physical Exam Vital Signs Date Time Temp Pulse Resp B/P (MAP) Pulse Ox O2 Delivery O2 Flow Rate FiO2 11/21/19 17:51 98.2 85 21 154/90 (111) 92 Sp02 EP Interpretation: reviewed, normal General Appearance: no apparent distress, alert, non-toxic, other - Appears generally fatigued and uncomfortable but otherwise nonfocal examination Head: normocephalic, atraumatic Eyes: bilateral eye normal inspection, bilateral eye PERRL ENT: hearing grossly normal, normal pharynx, no angioedema, normal voice Neck: full range of motion, supple/symm/no masses Respiratory: chest non-tender, lungs clear, normal breath sounds, speaking full sentences Cardiovascular #1: regular rate, rhythm, no edema Cardiovascular #2: 2+ carotid (R), 2+ carotid (L), 2+ radial (R), 2+ radial (L), 2+ dorsalis pedis (R), 2+ dorsalis pedis (L) Gastrointestinal: normal bowel sounds, non tender, soft, non-distended, no guarding, no rebound Rectal: deferred Genitourinary: normal inspection, no CVA tenderness Musculoskeletal: back normal, normal range of motion, calf tenderness, gait/station normal, non-tender Neurologic: alert, motor strength/tone normal, oriented x3, sensory intact, responsive, speech normal Psychiatric: judgement/insight normal, memory normal, mood/affect normal, no suicidal/homicidal ideation Lymphatic: no adenopathy Medical Decision Making Diagnostic Impression: Primary Impression: Hyperglycemia Additional Impressions: Altered mental status Chest pain Abnormal EKG ER Course EKG: NSR, rate 90 bpm. T wave inversions in leads I and aVL, intervals WNL. No ectopy Rhythm strip: patient monitored for arrhythmias - no malignant dysrhythmias, ru ns of PVCs, nor pauses noted Total critical care time: Approximately 25 minutes Due to a high probability of clinically significant, life threatening deterioration, the patient required the highest level of preparedness to intervene emergently and I personally spent this critical care time directly and personally managing the patient. This critical care time included obtaining a history, examining the patient, pulse oximetry, ordering and reviewing studies, ordering treatments, evaluating response to treatment and updating management plan as needed, frequent reassessment and discussion with other providers as well as arranging for ultimate disposition. This critical to care time was performed to assess and manage the high probability of life-threatening de terioration that could result in multiorgan failure. This critical care time is separate from the separately billable procedures and treating other patients. 64-year-old male here with hyperglycemia and generalized fatigue. Patient was hemodynamically stable in the emergency department. However initial blood glucose was highly elevated at 444. This was after the patient took over 50 units of insulin earlier in the day for an unreadable he high glucose level. He was complaining of some mild shortness of breath. EKG showed concerning T wave inversions in leads I and aVL. Troponin was 0.016. Patient received aspirin in the emergency department. He had normal CBC and CMP. He was given IV normal saline and 6 units of insulin IV and repeat blood glucose was 240. No evidence of DKA. I spoke with the accepting physician Dr. Parks who agreed to transfer the patient to [facility]. Patient transferred in stable condition. Last Vital Signs Date Time Temp Pulse Resp B/P (MAP) Pulse Ox O2 Delivery O2 Flow Rate FiO2 11/21/19 17:51 98.2 85 21 154/90 (111) 92 Referrals: [facility] (PCP) Acosta Morrow M.D. Nov 21, 2019 18:51
[2019-11-21 18:54] LABS: BASOPHILS % (AUTO) 0.9 % (0.0-2.0); EOSINOPHILS % (AUTO) 2.5 % (0.0-3.0); HEMATOCRIT 44.4 % (42.0-52.0); HEMOGLOBIN 14.8 G/DL (14.2-18.0); LYMPHOCYTES % (AUTO) 13.8 % (20.0-45.0); MEAN CORPUSCULAR VOLUME 87 FL (80-99); MONOCYTES % (AUTO) 4.6 % (1.0-10.0); NEUTROPHILS % (AUTO) 78.3 % (45.0-75.0); PLATELET COUNT 150 K/UL (150-450); RED BLOOD COUNT 5.07 M/UL (4.70-6.10); RED CELL DISTRIBUTION WIDTH 12.8 % (11.6-14.8); WHITE BLOOD COUNT 9.3 K/UL (4.8-10.8)
--- NOTE | 2019-11-21 18:56 | Diagnostic Imaging Report ---
EXAM: CT Head Without Intravenous Contrast CLINICAL HISTORY: AMS TECHNIQUE: Axial computed tomography images of the head/brain without intravenous contrast. CTDI is 53.4 mGy and DLP is 992.1 mGy-cm. One or more of the following dose reduction techniques were used: automated exposure control, adjustment of the mA and/or kV according to patient size, use of iterative reconstruction technique. COMPARISON: 01/13/2018. FINDINGS: Brain: Minimal small vessel disease of aging. No abnormal extra-axial collection. No hemorrhage. Midline shift: No midline shift or mass-effect. Ventricles: The ventricular system is age appropriate. Bones/joints: The calvarium is within normal limits. No acute fracture. Soft tissues: Possible old scalp injury at the vertex. Sinuses: Mild chronic ethmoid sinusitis. Mastoid air cells: Mastoid air cells are well pneumatized. Other findings: Coronal and axial images were provided. IMPRESSION: 1. No acute intracranial pathology is noted. 2. If there is concern for etiology such as early acute lacunar infarcts, magnetic resonance imaging of the brain with diffusion-weighted sequences should be performed.
[2019-11-21 19:01] LABS: APPEARANCE,URINE CLEAR; BILIRUBIN, URINE NEGATIVE (NEGATIVE); COLOR,URINE PALE YELLOW; GLUCOSE, URINE (UA) 4+ (NEGATIVE); KETONES,URINE NEGATIVE (NEGATIVE); LEUKOCYTE ESTERASE ,URINE NEGATIVE (NEGATIVE); NITRITE,URINE NEGATIVE (NEGATIVE); PH,URINE 5 (4.5-8.0); PROTEIN,URINE 2+ (NEGATIVE); UROBILINOGEN,URINE NORMAL MG/DL (0.0-1.0)
[2019-11-21 19:02] LABS: CALCIUM 9.5 MG/DL (8.5-10.1); POTASSIUM 4.4 MMOL/L (3.5-5.1)
[2019-11-21 19:07] LABS: ALBUMIN 3.9 G/DL (3.4-5.0); ALBUMIN/GLOBULIN RATIO 1.3 (1.0-2.7); BILIRUBIN,TOTAL 0.4 MG/DL (0.2-1.0)
--- NOTE | 2019-11-21 19:25 | NUR ---
ED Nurse Note: Recieved report from amm nurse to resume care, pt in bed awake and alert and oriented x 4, has patent saline lock with fluids infusing, pt here for elevated Blood Sugar level, denies chest pain but c/o left knee pain at 8/10, no sob or labored breathing, will resume care as ordered and continue to closely monitor.
[2019-11-21 20:45] VITALS: BP 157/84
--- NOTE | 2019-11-21 21:10 | NUR ---
ED Nurse Note: [facility] HAS ARRIVED FOR PT TRANSPORT TO ANOTHER FACILITY, REPORT CALLED TO [facility] AT [phone], REPORT GIVEN TO CARTRIDGE MAKER ERISRN, PT IS AWARE OF TRANSFER AND SIGNED FORMS, PT IS LEAVING AWAKE, ALERT AND ORIENTED X 4, HAS ALL BELONGINGS AND DENIES PAIN OR ANY DISTRESS, AMBULANCE REPORT GIVEN TO SEWING ROOM SUPERVISOR ALEXANDREA OF RIG#[id number], NAD NOTED DURING PT TRANSFER.
[2019-11-21 21:20] VITALS: BP 157/84
--- NOTE | 2019-11-23 14:51 | Cardiology Report ---
APPROVED REPORT EKG Measurement Heart [id number] <Conclusion> Normal sinus rhythm Cannot rule out Anterior infarct, age undetermined Abnormal ECG
== END 2019-11-21 21:20 | disposition short-term general hospital (02) ==
LOC: EMR 18:30
DX: E10.65 Type 1 diabetes mellitus with hyperglycemia (principal); R41.82 Altered mental status, unspecified; R07.9 Chest pain, unspecified; R94.31 Abnormal electrocardiogram [ECG] [EKG]; I10 Essential (primary) hypertension; Z79.4 Long term (current) use of insulin; Z79.84 Long term (current) use of oral hypoglycemic drugs; Z79.899 Other long term (current) drug therapy; Z79.82 Long term (current) use of aspirin
CPT/HCPCS: 36415; 70450; 71045; 80053; 81003; 82009; 82962; 83605; 83735; 84484; 85025; 87040; 93005; 96360; J1815; J7030; U0002; Z7502; 99291

== ENCOUNTER 2020-02-03 20:51 | Emergency (ER) | payer OTHER ==
[~2020-02-03] VITALS: Ht 180.3 cm; Wt 104.3 kg
[2020-02-03] MEDS ORDERED: Tylenol #3 tab (300mg/30mg) ORAL ONE (21:15)
[2020-02-03] MEDS ORDERED: ACETAMINOPHEN-1 EAC1 ORAL (21:42)
[2020-02-03 22:07] VITALS: BP_SYST 145; BP_SYST 174; BP_DIAS 76; BP_DIAS 83
--- NOTE | 2020-02-04 09:53 | Diagnostic Imaging Report ---
Indication: Hand pain Technique: 3 views of the left hand Comparison: 11/27/2017 Findings: No acute fracture identified. There are degenerative changes with osseous erosions again noted about the first interphalangeal joint. There is joint space narrowing involving additional interphalangeal joints. Degenerative changes with subchondral cystic change also noted at the basal joint. There is also joint space narrowing with subchondral cysts and sclerosis at the first metacarpophalangeal joint. Again seen is an unchanged well-corticated ossific density projecting posterior to the wrist on the lateral view which may represent an old/chronic triquetral fracture. No radiopaque foreign body. IMPRESSION: No acute fracture. 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 Degenerative changes most pronounced at the basal joint, first metacarpophalangeal joint and multiple interphalangeal joints.
--- NOTE | 2020-02-08 00:09 | Emergency Room Report ---
History of Present Illness General Chief Complaint: Upper Extremity Injury Source: Patient, Medical Record Present Illness HPI 64-year-old male presents with left hand pain and swelling. States that 1 week ago he accidentally hit his hand with a hammer while working. Denies seek me dical attention at the time. Pain is throbbing, 6 out of 10, nonradiating. Primarily around the thumb. Denies any other injuries. No other aggravating relieving factors. Denies any other associated symptoms Allergies: Coded Allergies: No Known Allergies (Unverified , 12/19/11) COVID-19 Screening Contact w/high risk pt: No Experienced COVID-19 symptoms?: No COVID-19 Testing performed HARD CANDY SPINNER: No Patient History Past Medical History: none, DM, HTN Past Surgical History: none Pertinent Family History: none Social History: Denies: smoking, alcohol use, drug use Immunizations: UTD Reviewed Nursing Documentation: PMH: Agreed; PSxH: Agreed Nursing Documentation-PMH Hx Cardiac Problems: Yes Hx Hypertension: Yes Hx Diabetes: Yes Hx Cancer: No Hx Neurological Problems: No Review of Systems All Other Systems: negative except mentioned in HPI Physical Exam Sp02 EP Interpretation: reviewed, normal General Appearance: no apparent distress, alert, GCS 15, non-toxic Head: normocephalic, atraumatic Eyes: bilateral eye normal inspection, bilateral eye PERRL ENT: hearing grossly normal, normal pharynx, no angioedema, normal voice Neck: full range of motion, supple/symm/no masses Respiratory: chest non-tender, lungs clear, normal breath sounds, speaking full sentences Cardiovascular #1: regular rate, rhythm, no edema Cardiovascular #2: 2+ carotid (R), 2+ carotid (L), 2+ radial (R), 2+ radial (L), 2+ dorsalis pedis (R), 2+ dorsalis pedis (L) Gastrointestinal: normal bowel sounds, non tender, soft, non-distended, no guarding, no rebound Rectal: deferred Genitourinary: normal inspection, no CVA tenderness Musculoskeletal: back normal, normal range of motion, gait/station normal, swelling - L hand, snuffbox tenderness Neurologic: alert, motor strength/tone normal, oriented x3, sensory intact, responsive, speech normal Psychiatric: judgement/insight normal, memory normal, mood/affect normal, no suicidal/homicidal ideation Reflexes: 3+ bicep (R), 3+ bicep (L), 3+ tricep (R), 3+ tricep (L), 3+ knee (R), 3+ knee (L) Lymphatic: no adenopathy Procedures Splinting Splinting : Consent: Verbal Splint: thumb spica Pre-Proc Neuro Vasc Exam: normal Post-Proc Neuro Vasc Exam: normal Patient Tolerated: Well Complications: None Medical Decision Making Diagnostic Impression: Primary Impression: Thumb injury Qualified Codes: S69.92XA - Unspecified injury of left wrist, hand and finger(s), initial encounter ER Course Hospital Course 64-year-old male presents with left hand pain and swelling Differential diagnoses include: Fracture, dislocation, sprain, contusion Clinical course Patient placed on stretcher. After initial history and physical, I ordered pain medications and Xrays of L hand Xrays prelim read shows again DJD, questionable fracture at base of left thumb Discussed findings with patient. Placed in thumb spica. Safe for discharge close outpatient follow-up. I will provide referrals Diagnosis - thumb injury Stable and discharged to home with prescription for T3. apply ice, keep elevat ed. Followup with PMD. Return to ED if symptoms recur or worsen Other X-Ray Diagnostic Results Other X-Ray Diagnostic Results : X-Ray ordered: L hand # of Views/Limited Vs Complete: 3 View Indication: Pain EP Interpretation: Yes Interpretation: no dislocation, no soft tissue swelling, other - chronic triquetral fx Impression: Other - ?fx Electronically Signed by: Electronically signed by Jovon Woodward MD Status: improved Disposition: HOME, SELF-CARE Condition: Stable Scripts Acetaminophen With Codeine (T#3) (TYLENOL #3 TAB*) Y Tab 1 TAB ORAL Q8H PRN for For Pain, #12 TAB Prov: Jovon Woodward MD 02/03/20 Referrals: [facility] ([facility]P) Amina Bolanos Comp. [facility] Open 24 hour /7 days a week by Appointment Only [address] [facility] [address] [facility] [address] Patient Instructions: Thumb Fracture Jovon Woodward MD Feb 08, 2020 00:09
== END 2020-02-03 22:09 | disposition home or self-care (01) ==
LOC: EMR 21:15
DX: S69.92XA Unspecified injury of left wrist, hand and finger(s), initial encounter (principal); I11.9 Hypertensive heart disease without heart failure; E11.9 Type 2 diabetes mellitus without complications; W22.8XXA Striking against or struck by other objects, initial encounter; Y93.9 Activity, unspecified; Y92.9 Unspecified place or not applicable
CPT/HCPCS: 29125; 73130; Z7502; 99283